=== PATIENT | female | born 1990 | race African-American/Black ===

== ENCOUNTER 2016-08-09 22:59 | Emergency (ER) | payer MEDICAID ==
[2016-08-10] MEDS ORDERED: ONDANSETRON 4 MG VIAL ONE (00:19)
[2016-08-10] MEDS ORDERED: KETOROLAC 30 MG/ML VIAL ONE (00:19)
[2016-08-10] MEDS ORDERED: SODIUM CHLORIDE 0.9% 1,000 ML ONE (00:20)
[2016-08-10] MEDS ORDERED: HYOSCYAMINE 0.5 MG/ML AMP 1 ML ONE (01:04)
[2016-08-10] MEDS ORDERED: SODIUM CHLORIDE 0.9% 50 ML IV ONE (01:37)
[2016-08-10] MEDS ORDERED: PROMETHAZINE 25 MG/ML VIAL ONE (01:37)
== END 2016-08-10 02:10 | disposition home or self-care (01) ==
LOC: ER 22:59
DX: K80.70 Calculus of gallbladder and bile duct without cholecystitis without obstruction (principal)
CPT/HCPCS: 36415; 80053; 81003; 83690; 84703; 85025; 96361; 96365; 96375